=== PATIENT | female | born 1975 | race Caucasian/White ===

== ENCOUNTER 2019-08-25 12:53 | Inpatient (IN) | payer SELFPAY ==
[2019-08-25] MEDS ORDERED: ONDANSETRON 4 MG TAB.RAPDIS PO ONE (13:32)
[2019-08-25] MEDS ORDERED: NORMAL SALINE 1000 ML 1,000 ML IV ONE (13:32)
--- NOTE | 2019-08-25 13:34 | ER Document Report ---
ED Medical Screen (RME) - General Chief Complaint: Fever Stated Complaint: FEVER Time Seen by Provider: 08/25/19 13:30 TRAVEL OUTSIDE OF THE [place] IN LAST 30 DAYS: No - HPI Notes: 08/25/19 13:33 Patient is a 44-year-old female who presents complaining of fever, body ache, nausea that is been ongoing for 6 days despite medicines. Patient states that she normally does have some nasal congestion and cough which she does continue to have and is not sure if this is outside of her normal or not. Denies drug allergies. No chest pain or shortness of breath. No vomiting or diarrhea. I have treated and performed a rapid initial assessment of this patient. A comprehensive ED assessment and evaluation of the patient, analysis of test results and completion of medical decision making process will be conducted by additional ED providers. PHYSICAL EXAMINATION: GENERAL: Well-appearing, well-nourished and in no acute distress. A&Ox4. Answers questions appropriately. Lungs: Grossly CTAB. No retractions. Abdomen: Limited exam in triage, grossly nontender. - Related Data Allergies/Adverse Reactions: No Known Allergies Allergy (Verified 08/25/19 13:25) Past Medical History - Social History Chew tobacco use (# tins/day): No Frequency of alcohol use: None Drug Abuse: None Past Surgical History: Reports: Hx Tubal Ligation - Immunizations Hx Diphtheria, Pertussis, Tetanus Vaccination: Yes
[2019-08-25] MEDS ORDERED: ACETAMINOPHEN 325 MG TABLET PO ONE (14:13)
[2019-08-25 14:15] LABS: HEMATOCRIT 31.5 % (36.0-47.0); HEMOGLOBIN 10.1 g/dL (12.0-15.5); MEAN CORPUSCULAR HEMOGLOBIN 22.4 pg (27.0-33.4); MEAN CORPUSCULAR VOLUME 70 fl (80-97); PLATELET COUNT 324 10^3/uL (150-450); RED BLOOD COUNT 4.51 10^6/uL (3.72-5.28); RED CELL DISTRIBUTION WIDTH 17.7 % (11.5-14.0); WHITE BLOOD COUNT 17.8 10^3/uL (4.0-10.5)
--- NOTE | 2019-08-25 14:16 | ER Document Report ---
ED General - General Chief Complaint: Fever Stated Complaint: FEVER Time Seen by Provider: 08/25/19 14:00 Mode of Arrival: Ambulatory Information source: Patient Notes: Patient presents complaining of fever chills that started 6 days ago. Patient also complains of nausea with diarrhea x1 episode. Patient states she is had a cough but states she has chronic cough due to allergies and smoking. TRAVEL OUTSIDE OF THE [place] IN LAST 30 DAYS: No - HPI Onset: Last week Onset/Duration: Persistent Quality of pain: Achy Pain Level: 1 Associated symptoms: Body/muscle aches, Nonproductive cough - smoker, Fever. denies: Chest pain, Diarrhea, Nausea, Sinus pain/drainage, Shortness of breath, Sore throat Exacerbated by: Denies Relieved by: Denies Similar symptoms previously: Yes Recently seen / treated by doctor: No - Related Data Allergies/Adverse Reactions: No Known Allergies Allergy (Verified 08/25/19 13:25) Past Medical History - General Information source: Patient - Social History Smoking Status: Current Every Day Smoker Chew tobacco use (# tins/day): No Frequency of alcohol use: None Drug Abuse: None Occupation: none Lives with: Family Family History: Reviewed & Not Pertinent Patient has suicidal ideation: No Patient has homicidal ideation: No EENT Medical History: Reports: Other - allergies Past Surgical History: Reports: Hx Tubal Ligation - Immunizations Hx Diphtheria, Pertussis, Tetanus Vaccination: Yes Review of Systems - Review of Systems Constitutional: Chills, Fever. denies: Recent illness EENT: No symptoms reported. denies: Throat pain Cardiovascular: No symptoms reported. denies: Chest pain, Dizziness, Lightheaded Respiratory: Cough - chronic smoker cough. denies: Short of breath, Stridor Gastrointestinal: No symptoms reported. denies: Abdomen distended, Abdominal pain, Diarrhea, Nausea Genitourinary: No symptoms reported. denies: Dysuria, Flank pain Female Genitourinary: No symptoms reported. denies: Vaginal discharge Musculoskeletal: Muscle pain - leg pain to bilat anterior thighs. denies: Back pain Skin: No symptoms reported. denies: Rash Hematologic/Lymphatic: No symptoms reported Neurological/Psychological: No symptoms reported Physical Exam - Vital signs Vitals: Temp Pulse Resp BP Pulse Ox 101.5 F H 146 H 20 107/63 100 08/25/19 13:35 08/25/19 13:35 08/25/19 13:35 08/25/19 13:35 08/25/19 13:35 - General General appearance: Appears well, Alert In distress: None - HEENT Head: Normocephalic, Atraumatic Eyes: Normal Conjunctiva: Normal Ears: Normal External canal: Normal Nasal: Normal Mouth/Lips: Normal Mucous membranes: Normal Neck: Normal, Supple. No: Lymphadenopathy, Meningismus - Respiratory Respiratory status: No respiratory distress Chest status: Nontender Breath sounds: Nonproductive cough. No: Rhonchi, Stridor, Wheezing Chest palpation: Normal - Cardiovascular Rhythm: Tachycardia Heart sounds: S1 appreciated, S2 appreciated Murmur: No - Abdominal Inspection: Normal Distension: No distension Bowel sounds: Normal Tenderness: Nontender Organomegaly: No organomegaly - Back Back: Normal, Nontender. No: CVA tenderness - Extremities General upper extremity: Normal inspection, Normal ROM General lower extremity: Normal inspection, Normal ROM - Neurological Neuro grossly intact: Yes Cognition: Normal Orientation: AAOx4 Tomy Coma Scale Eye Opening: Spontaneous [place] Coma Scale Verbal: Oriented [place] Coma Scale Motor: Obeys Commands Tomy Coma Scale Total: 15 - Psychological Associated symptoms: Normal affect, Normal mood - Skin Skin Temperature: Warm Skin Moisture: Dry Skin Color: Normal Course - Re-evaluation Re-evalutation: 08/25/19 17:25 Patient complains only of generalized body aches. Patient hypotensive at this time. Patient with UTI. Suspect likely sepsis due to UTI at this time. Urine culture has been ordered. Call placed to hospitalist for admission, Dr. Flores does agree to accept patient for admission at this time. 08/25/19 17:29 Patient continues hypotensive, consulted with Dr. Powers who recommends adding an additional liter of IV fluids at this time. Patient is not symptomatic at this time with her hypotension. Dr. Powers does not feel that patient requires pressors at this time. 08/25/19 18:02 Dr. Flores to bedside, manual blood pressure was obtained which was 100 systolic, repeat blood pressure on the monitor was 85/53. Dr Flores declines excepting admission at this time and prefers to have a CT scan performed with IV contrast. She states that she needs a source for patient's infection at this time. Dr Obayomi prefers to have night hospitalist consulted once pt's CT scan is resulted as long as pt's blood pressure is stable, otherwise she advises consulting with the industrial insulator. 08/25/19 18:[address] scan report reviewed that shows findings worrisome for pyelonephritis on the right side. Results called to Dr. flores advises calling Dr. Triplett whenever he comes on at 7. 08/25/19 19:31 Patient's repeat blood pressure presently is 97/65 with a heart rate in the 90s. Patient complains only of muscle tenderness to bilateral anterior thighs. Consulted with Dr. Triplett for admission who agrees to accept patient to medical floor at this time. Does recommend starting IV LR at 250 an hour. - Vital Signs Vital signs: Temp Pulse Resp BP Pulse Ox 98.2 F 118 H 19 94/62 L 98 08/25/19 17:08 08/25/19 14:01 08/25/19 18:49 08/25/19 18:49 08/25/19 18:49 - Laboratory Result Diagrams: 08/25/19 13:43 08/25/19 13:43 Laboratory results interpreted by me: 08/25/19 08/25/19 08/25/19 13:43 13:43 13:43 WBC 17.8 H Hgb 10.1 L Hct 31.5 L MCV 70 L MCH 22.4 L RDW 17.7 H Seg Neuts % (Manual) 84 H Lymphocytes % (Manual) 4 L Abs Neuts (Manual) 15.0 H Abs Monocytes (Manual) 2.0 H VBG pH VBG pCO2 Sodium 134.1 L Carbon Dioxide 21 L Glucose 120 H Lactic Acid 2.6 H Total Protein 6.1 L Albumin 3.2 L Urine Protein Urine Blood Leukocyte Esterase Rfl 08/25/19 08/25/19 15:23 16:09 WBC Hgb Hct MCV MCH RDW Seg Neuts % (Manual) Lymphocytes % (Manual) Abs Neuts (Manual) Abs Monocytes (Manual) VBG pH 7.45 H VBG pCO2 32.3 L Sodium Carbon Dioxide Glucose Lactic Acid Total Protein Albumin Urine Protein 100 H Urine Blood LARGE H Leukocyte Esterase Rfl LARGE H Labs- Entire Visit 08/25/19 08/25/19 08/25/19 13:43 13:43 13:43 WBC 17.8 H RBC 4.51 Hgb 10.1 L Hct 31.5 L MCV 70 L MCH 22.4 L MCHC 32.0 RDW 17.7 H Plt Count 324 Lymph % (Auto) Not Reportable Rains % (Auto) Not Reportable Eos % (Auto) Not Reportable Baso % (Auto) Not Reportable Absolute Neuts (auto) Not Reportable Absolute Lymphs (auto) Not Reportable Absolute Monos (auto) Not Reportable Absolute Eos (auto) Not Reportable Absolute Basos (auto) Not Reportable Total Counted 100 Seg Neutrophils % Not Reportable Seg Neuts % (Manual) 84 H Lymphocytes % (Manual) 4 L Monocytes % (Manual) 11 Eosinophils % (Manual) 1 Basophils % (Manual) 0 Abs Neuts (Manual) 15.0 H Abs Lymphs (Manual) 0.7 Abs Monocytes (Manual) 2.0 H Absolute Eos (Manual) 0.2 Abs Basophils (Manual) 0.0 Large Platelets PRESENT Platelet Comment ADEQUATE Anisocytosis 1+ Microcytosis 2+ Ovalocytes 1+ PT INR VBG pH VBG pCO2 VBG HCO3 VBG Base Excess Sodium 134.1 L Potassium 3.6 Chloride 102 Carbon Dioxide 21 L Anion Gap 11 BUN 12 Creatinine 1.00 Est GFR ( Amer) > 60 Est GFR (MDRD) Non-Af > 60 Glucose 120 H Lactic Acid 2.6 H Calcium 8.5 Total Bilirubin 0.7 Direct Bilirubin 0.1 Neonat Total Bilirubin Not Reportable Neonat Direct Bilirubin Not Reportable Neonat Indirect Bili Not Reportable AST 17 ALT 11 Alkaline Phosphatase 72 Creatine Kinase Total Protein 6.1 L Albumin 3.2 L Urine Color Urine Appearance Urine pH Ur Specific [place] Urine Protein Urine Glucose (UA) Urine Ketones Urine Blood Urine Nitrite (Reflex) Urine Bilirubin Urine Urobilinogen Leukocyte Esterase Rfl Urine RBC (Auto) Urine Bacteria (Auto) Urine WBC (Reflex) Urine WBC Clumps Squamous Epi Cells Auto U Non-Squamous Epis Auto Amorphous Sediment Auto Urine Mucus (Auto) Urine Ascorbic Acid Urine HCG, Qual Influenza A (Rapid) Influenza B (Rapid) Group A Strep Rapid 08/25/19 08/25/19 08/25/19 13:43 13:43 13:43 WBC RBC Hgb Hct MCV MCH MCHC RDW Plt Count Lymph % (Auto) Rains % (Auto) Eos % (Auto) Baso % (Auto) Absolute Neuts (auto) Absolute Lymphs (auto) Absolute Monos (auto) Absolute Eos (auto) Absolute Basos (auto) Total Counted Seg Neutrophils % Seg Neuts % (Manual) Lymphocytes % (Manual) Monocytes % (Manual) Eosinophils % (Manual) Basophils % (Manual) Abs Neuts (Manual) Abs Lymphs (Manual) Abs Monocytes (Manual) Absolute Eos (Manual) Abs Basophils (Manual) Large Platelets Platelet Comment Anisocytosis Microcytosis Ovalocytes PT 15.0 INR 1.17 VBG pH VBG pCO2 VBG HCO3 VBG Base Excess Sodium Potassium Chloride Carbon Dioxide Anion Gap BUN Creatinine Est GFR ( Amer) Est GFR (MDRD) Non-Af Glucose Lactic Acid Calcium Total Bilirubin Direct Bilirubin Neonat Total Bilirubin Neonat Direct Bilirubin Neonat Indirect Bili AST ALT Alkaline Phosphatase Creatine Kinase 34 Total Protein Albumin Urine Color Urine Appearance Urine pH Ur Specific [place] Urine Protein Urine Glucose (UA) Urine Ketones Urine Blood Urine Nitrite (Reflex) Urine Bilirubin Urine Urobilinogen Leukocyte Esterase Rfl Urine RBC (Auto) Urine Bacteria (Auto) Urine WBC (Reflex) Urine WBC Clumps Squamous Epi Cells Auto U Non-Squamous Epis Auto Amorphous Sediment Auto Urine Mucus (Auto) Urine Ascorbic Acid Urine HCG, Qual Influenza A (Rapid) NEGATIVE Influenza B (Rapid) NEGATIVE Group A Strep Rapid 08/25/19 08/25/19 08/25/19 14:57 14:57 15:23 WBC RBC Hgb Hct MCV MCH MCHC RDW Plt Count Lymph % (Auto) Rains % (Auto) Eos % (Auto) Baso % (Auto) Absolute Neuts (auto) Absolute Lymphs (auto) Absolute Monos (auto) Absolute Eos (auto) Absolute Basos (auto) Total Counted Seg Neutrophils % Seg Neuts % (Manual) Lymphocytes % (Manual) Monocytes % (Manual) Eosinophils % (Manual) Basophils % (Manual) Abs Neuts (Manual) Abs Lymphs (Manual) Abs Monocytes (Manual) Absolute Eos (Manual) Abs Basophils (Manual) Large Platelets Platelet Comment Anisocytosis Microcytosis Ovalocytes PT INR VBG pH 7.45 H VBG pCO2 32.3 L VBG HCO3 21.8 VBG Base Excess -1.8 Sodium Potassium Chloride Carbon Dioxide Anion Gap BUN Creatinine Est GFR ( Amer) Est GFR (MDRD) Non-Af Glucose Lactic Acid Calcium Total Bilirubin Direct Bilirubin Neonat Total Bilirubin Neonat Direct Bilirubin Neonat Indirect Bili AST ALT Alkaline Phosphatase Creatine Kinase Total Protein Albumin Urine Color Urine Appearance Urine pH Ur Specific [place] Urine Protein Urine Glucose (UA) Urine Ketones Urine Blood Urine Nitrite (Reflex) Urine Bilirubin Urine Urobilinogen Leukocyte Esterase Rfl Urine RBC (Auto) Urine Bacteria (Auto) Urine WBC (Reflex) Urine WBC Clumps Squamous Epi Cells Auto U Non-Squamous Epis Auto Amorphous Sediment Auto Urine Mucus (Auto) Urine Ascorbic Acid Urine HCG, Qual Influenza A (Rapid) Cancelled Influenza B (Rapid) Cancelled Group A Strep Rapid NEGATIVE 08/25/19 16:09 WBC RBC Hgb Hct MCV MCH MCHC RDW Plt Count Lymph % (Auto) Rains % (Auto) Eos % (Auto) Baso % (Auto) Absolute Neuts (auto) Absolute Lymphs (auto) Absolute Monos (auto) Absolute Eos (auto) Absolute Basos (auto) Total Counted Seg Neutrophils % Seg Neuts % (Manual) Lymphocytes % (Manual) Monocytes % (Manual) Eosinophils % (Manual) Basophils % (Manual) Abs Neuts (Manual) Abs Lymphs (Manual) Abs Monocytes (Manual) Absolute Eos (Manual) Abs Basophils (Manual) Large Platelets Platelet Comment Anisocytosis Microcytosis Ovalocytes PT INR VBG pH VBG pCO2 VBG HCO3 VBG Base Excess Sodium Potassium Chloride Carbon Dioxide Anion Gap BUN Creatinine Est GFR ( Amer) Est GFR (MDRD) Non-Af Glucose Lactic Acid Calcium Total Bilirubin Direct Bilirubin Neonat Total Bilirubin Neonat Direct Bilirubin Neonat Indirect Bili AST ALT Alkaline Phosphatase Creatine Kinase Total Protein Albumin Urine Color YELLOW Urine Appearance CLOUDY Urine pH 5.0 Ur Specific [place] 1.008 Urine Protein 100 H Urine Glucose (UA) NEGATIVE Urine Ketones NEGATIVE Urine Blood LARGE H Urine Nitrite (Reflex) NEGATIVE Urine Bilirubin NEGATIVE Urine Urobilinogen NEGATIVE Leukocyte Esterase Rfl LARGE H Urine RBC (Auto) 24 Urine Bacteria (Auto) 3+ Urine WBC (Reflex) 172 Urine WBC Clumps MANY Squamous Epi Cells Auto 11 U Non-Squamous Epis Auto 1 Amorphous Sediment Auto TRACE Urine Mucus (Auto) RARE Urine Ascorbic Acid NEGATIVE Urine HCG, Qual NEGATIVE Influenza A (Rapid) Influenza B (Rapid) Group A Strep Rapid - Diagnostic Test Radiology reviewed: Reports reviewed Discharge - Discharge Clinical Impression: Pyelonephritis Fever Qualifiers: Fever type: unspecified Qualified Code(s): R50.9 - Fever, unspecified Leukocytosis Qualifiers: Leukocytosis type: unspecified Qualified Code(s): D72.829 - Elevated white blood cell count, unspecified Condition: Fair Disposition: ADMITTED INPATIENT Admitting Provider: Ioana (Hospitalist) Unit Admitted: Medical Floor
[2019-08-25 14:26] LABS: ABSOLUTE LYMPHOCYTES# (MANUAL) 0.7 10^3/uL (0.5-4.7); BASOPHILS % (MANUAL) 0 % (0-2); EOSINOPHILS % (MANUAL) 1 % (0-6); LYMPHOCYTES % (MANUAL) 4 % (13-45); MONOCYTES % (MANUAL) 11 % (3-13); SEGMENTED NEUTROPHILS % (MAN) 84 % (42-78); TOTAL CELLS COUNTED 100
[2019-08-25 14:27] LABS: ANISOCYTOSIS 1+; OVALOCYTES 1+; PLATELET COMMENT ADEQUATE; PLATELET LARGE PRESENT
--- NOTE | 2019-08-25 14:33 | RADIOLOGY REPORT (SQ) ---
EXAM DESCRIPTION: CHEST 2 VIEWS COMPLETED DATE/TIME: 08/25/2019 1:53 pm REASON FOR STUDY: fever, cough COMPARISON: None. EXAM PARAMETERS: NUMBER OF VIEWS: two views TECHNIQUE: Digital Frontal and Lateral radiographic views of the chest acquired. RADIATION DOSE: NA LIMITATIONS: none FINDINGS: LUNGS AND PLEURA: No opacities, masses or pneumothorax. No pleural effusion. MEDIASTINUM AND HILAR STRUCTURES: No masses or contour abnormalities. HEART AND VASCULAR STRUCTURES: Heart normal size. No evidence for failure. BONES: No acute findings. HARDWARE: None in the chest. OTHER: No other significant finding. IMPRESSION: NO ACUTE RADIOGRAPHIC FINDING IN THE CHEST. TECHNICAL DOCUMENTATION: JOB ID: [id number] 2010 [employer]- All Rights Reserved Reading location - IP/workstation name: [email or web address]
[2019-08-25 14:35] LABS: ALBUMIN 3.2 g/dL (3.5-5.0); ALKALINE PHOSPHATASE 72 U/L (38-126); ANION GAP 11 (5-19); ASPARTATE AMINO TRANSFERASE 17 U/L (14-36); BILIRUBIN,DIRECT 0.1 mg/dL (0.0-0.4); BILIRUBIN,TOTAL 0.7 mg/dL (0.2-1.3); BLOOD UREA NITROGEN 12 mg/dL (7-20); CALCIUM 8.5 mg/dL (8.4-10.2); CARBON DIOXIDE 21 mmol/L (22-30); CHLORIDE 102 mmol/L (98-107); GLUCOSE 120 mg/dL (75-110); POTASSIUM 3.6 mmol/L (3.6-5.0); TOTAL PROTEIN 6.1 g/dL (6.3-8.2)
[2019-08-25] MEDS ORDERED: RINGERS SOLUTION,LACTATED 1,000 ML IV ONE ×3 (14:39→19:30)
[2019-08-25 14:57] LABS: INTERNATIONAL RATION (INR) 1.17
[2019-08-25 15:26] LABS: A TYPE INFLUENZA AG NEGATIVE (NEGATIVE); B INFLUENZA AG NEGATIVE (NEGATIVE)
[2019-08-25 15:37] LABS: VENOUS BLOOD BASE EXCESS -1.8 mmol/L; VENOUS BLOOD HCO3 21.8 mmol/L (20-32); VENOUS BLOOD PCO2 32.3 mmHg (35-63); VENOUS BLOOD PH 7.45 (7.30-7.42)
[2019-08-25] MEDS ORDERED: CEFTRIAXONE 1 GM/D5W RTU 1 GM/50 ML RTUPB IV ONE (15:46)
[2019-08-25] MEDS ORDERED: NORMAL SALINE 500 ML IV ONE (15:47)
[2019-08-25 16:46] LABS: AMORPHOUS SEDIMENT,URINE TRACE /HPF; APPEARANCE,URINE CLOUDY; BILIRUBIN,URINE NEGATIVE (NEGATIVE); COLOR,URINE YELLOW; GLUCOSE, URINE NEGATIVE (NEGATIVE); KETONES,URINE NEGATIVE (NEGATIVE); PROTEIN,URINE 100 mg/dL (NEGATIVE); URINE SPECIFIC GRAVITY 1.008; UROBILINOGEN,URINE NEGATIVE mg/dL (<2.0)
--- NOTE | 2019-08-25 18:49 | RADIOLOGY REPORT (SQ) ---
EXAM DESCRIPTION: CT ABD/PELVIS WITH IV ONLY COMPLETED DATE/TIME: 08/25/2019 6:29 pm REASON FOR STUDY: uti, hypotension COMPARISON: None. TECHNIQUE: CT scan of the abdomen and pelvis performed using helical scanning technique with dynamic intravenous contrast injection. No oral contrast. Images reviewed with lung, soft tissue, and bone windows. Reconstructed coronal and sagittal MPR images reviewed. Delayed images for evaluation of the urinary system also acquired. All images stored on PACS. All CT scanners at this facility use dose modulation, iterative reconstruction, and/or weight based d osing when appropriate to reduce radiation dose to as low as reasonably achievable (ALARA). [facility]: Dose Right [facility]: CareDose [facility]: Dose Right [facility]: Teradose 4D [facility]: [employer] CONTRAST TYPE AND DOSE: contrast/concentration: Isovue 350.00 mg/ml; Total Contrast Delivered: 94.0 ml; Total Saline Delivered: 71.0 ml RENAL FUNCTION: BUN 12 creatinine 1 RADIATION DOSE: CT Rad equipment meets quality standard of care and radiation dose reduction techniq ues were employed. CTDIvol: 13.2 - 18.0 mGy. DLP: 1607 mGy-cm.. LIMITATIONS: None. FINDINGS: LOWER CHEST: No significant findings. No nodules or infiltrates. LIVER: Normal in size and appearance. No masses. SPLEEN: Splenomegaly. PANCREAS: No masses. No significant calcifications. No adjacent inflammation or peripancreatic fluid collections. Pancreatic duct not dilated. GALLBLADDER: No identified stones by CT criteria. No inflammatory changes to suggest cholecystitis. ADRENAL GLANDS: No significant masses or asymmetry. RIGHT KIDNEY AND URETER: The right kidney shows heterogeneous enhancement with several areas that enh ance poorly. No significant calcifications. No hydronephrosis or hydroureter. LEFT KIDNEY AND URETER: No solid masses. No significant calcifications. No hydronephrosis or hydr oureter. AORTA AND VESSELS: No aneurysm. No dissection. Renal arteries, SMA, celiac without stenosis. RETROPERITONEUM: No retroperitoneal adenopathy, hemorrhage or masses. BOWEL AND PERITONEAL CAVITY: No masses or inflammatory changes. No free fluid or peritoneal masses. APPENDIX: Normal. PELVIS: No mass. No free fluid. Normal bladder. ABDOMINAL WALL: No masses. No hernias. BONES: No significant or acute findings. OTHER: No other significant finding. IMPRESSION: 1. Possible right pyelonephritis. Correlate clinically. No ureteral stone or obstruct ion. 2. Splenomegaly. TECHNICAL DOCUMENTATION: JOB ID: [id number] Quality ID # [id number]: Final reports with documentation of one or more dose reduction techniques (e.g., Au tomated exposure control, adjustment of the mA and/or kV according to patient size, use of iterative reconstruction technique) 2010 [employer]- All Rights Reserved Reading location - IP/workstation name: [email or web address]
[2019-08-25] MEDS ORDERED: LEVALBUTEROL HCL NEB 0.63 MG/3 ML AMPUL NEB PRN (20:10)
[2019-08-25] MEDS ORDERED: PROMETHAZINE HCL INJ 25 MG/1 ML VIAL IV PRN (20:10)
[2019-08-25] MEDS ORDERED: MAGNESIUM HYDROXIDE SUSP 30 ML UDCUP PO PRN (20:10)
[2019-08-25] MEDS ORDERED: MAG HYDROX/AL HYDROX/SIMETH SUSP 30 ML UDCUP PO PRN (20:10)
[2019-08-25] MEDS ORDERED: NICOTINE 21 MG/24 HR PATCH.TD24 TD PRN (20:14)
[2019-08-25] MEDS ORDERED: GUAIFENESIN SYRP 200 MG/10 ML UDC PO PRN (20:14)
[2019-08-25] MEDS ORDERED: MORPHINE SULFATE 10 MG/ML INJ IV PRN ×3 (20:14)
[2019-08-25 20:41] LABS: ABSOLUTE RETICS # 0.035 10^6/uL (0.028-0.122); RETICULOCYTE COUNT (AUTO) 0.82 % (0.66-2.85)
[2019-08-25 20:51] LABS: IRON(TIBC) 10.2 ug/dL (37-170)
--- NOTE | 2019-08-25 21:19 | EKG REPORT ---
SEVERITY:- NORMAL ECG - SINUS RHYTHM : Confirmed by: Kellie Felix 25-Aug-2019 21:18:11
[2019-08-25 21:56] LABS: FOLATE 4.67 ng/mL (>2.76)
[2019-08-25] MEDS: ACETAMINOPHEN 325 MG TABLET PO PRN (22:00)
[2019-08-25] MEDS ORDERED: MEROPENEM 1 GM VIAL IV SCH (22:00)
[2019-08-25] MEDS: FAMOTIDINE 20 MG TABLET PO SCH (22:01)
[2019-08-25] MEDS: HEPARIN SOD (PORCINE) 5,000 UNIT/ML 1 ML VIAL SUBCUT SCH (22:01)
--- NOTE | 2019-08-25 22:38 | PDOC H&P ---
History of Present Illness Admission Date/PCP: 08/25/19 19:36 No local PCP Patient complains of: Fever History of Present Illness: LILIA GALO is a 44 year old female who presents the emergency room with a one-week history of fever. Patient admits to constantly present undulant subjective fever of moderate severity over the last 6 to 7 days. The fever has been accompanied by intermittent episodes of chills and has been associated with generalized malaise and ague. She has not identified any additional associated or accompanying signs and symptoms. She denies prior similar episodes. She has not identified any aggravating or ameliorating factors for her fever. In the emergency room she was found to have tachycardia, hypotension, an elevated white blood count with an elevated lactic acid level and pyuria. A CT scan of the abdomen and pelvis confirmed presence of right pyelonephritis. IV antibiotic therapy was initiated in the ER. Patient was subsequently admitted to the hospital for further evaluation and treatment. Past Medical History Cardiac Medical History: Denies: Coronary Artery Disease, DVT, Hyperlipidema, Hypertension, Pulmonary Embolism Pulmonary Medical History: Reports: Bronchitis, Other - Chronic cough attributed to allergies and smoking Denies: Asthma, Chronic Obstructive Pulmonary Disease (COPD), Respiratory Failure EENT Medical History: Denies: Cataracts, Ears - Hearing aids Neurological Medical History: Denies: Hemorrhagic CVA, Ischemic CVA, Seizures Endocrine Medical History: Reports: Obesity Denies: Diabetes Mellitus Type 1, Diabetes Mellitus Type 2, Hyperthyroidism, Hypothyroidism Renal/ Medical History: Denies: Chronic Kidney Disease, Nephrolithiasis Malignancy Medical History: Reports: None GI Medical History: Denies: Cirrhosis, Crohn's Disease, Gastroesophageal Reflux Disease, Hepatitis, Peptic Ulcer Disease, Ulcerative Colitis Musculoskeltal Medical History: Denies: Arthritis, Gout Skin Medical History: Denies: Eczema, Psoriasis Psychiatric Medical History: Reports: Tobacco Dependency Denies: Alcohol Dependency, Substance Abuse Traumatic Medical History: Reports: None Hematology: Denies: Anemia, Bleeding Tendencies Infectious Medical History: Reports: None Past Surgical History Past Surgical History: Reports: Tubal Ligation Social History Information Source: Patient Lives with: Family Smoking Status: Current Every Day Smoker Cigarettes Packs Per Day: 1 Electronic Cigarette use?: No Last Time Smoked: 08/25/2019 Frequency of Alcohol Use: None Hx Recreational Drug Use: Yes - Clean and sober since March 2019 Drugs: None Hx Prescription Drug Abuse: No - Advance Directive Resuscitation Status: Full Code Surrogate healthcare decision maker:: Rojas Galo Family History Family History: CAD, DM, Hypertension, Malignancy Parental Family History Reviewed: Yes Children Family History Reviewed: No Sibling(s) Family History Reviewed.: Yes Medication/Allergy Home Medications: No Home Medications 08/25/19 Allergies/Adverse Reactions: No Known Allergies Allergy (Verified 08/25/19 13:25) Review of Systems Constitutional: PRESENT: as per HPI, chills, fever(s) Eyes: ABSENT: visual disturbances, other - Eye pain Ears: ABSENT: hearing changes, other - Ear pain Nose, Mouth, and Throat: ABSENT: headache(s), mouth pain, sore throat Cardiovascular: ABSENT: chest pain, dyspnea on exertion, edema, orthropnea, palpitations Respiratory: PRESENT: cough - Chronic cough. ABSENT: dyspnea Gastrointestinal: PRESENT: diarrhea - One episode of diarrhea earlier today, nausea - Mild nausea earlier today. ABSENT: abdominal pain, constipation, vomiting Genitourinary: PRESENT: other - Currently menstruating. ABSENT: dysuria, hematuria Integumentary: ABSENT: pruritus, rash Neurological: ABSENT: confusion, convulsions, focal weakness, memory loss, syncope Psychiatric: ABSENT: anxiety, depression Endocrine: ABSENT: cold intolerance, heat intolerance, polydipsia, polyphagia, polyuria Allergic/Immunologic: PRESENT: seasonal rhinorrhea Physical Exam Vital Signs: Temp Pulse Resp BP Pulse Ox 98.2 F 118 H 19 94/62 L 98 08/25/19 17:08 08/25/19 14:01 08/25/19 18:49 08/25/19 18:49 08/25/19 18:49 Intake & Output 08/23/19 08/24/19 08/25/19 23:59 23:59 23:59 Intake Total 2500 Balance 2500 Weight 80.8 kg General appearance: PRESENT: no acute distress, cooperative Head exam: PRESENT: atraumatic, normocephalic Eye exam: PRESENT: conjunctiva pink. ABSENT: conjunctival injection, scleral icterus Ear exam: PRESENT: normal external ear exam. ABSENT: bleeding, drainage Mouth exam: PRESENT: dry mucosa, neck supple Neck exam: ABSENT: thyromegaly, tracheal deviation Respiratory exam: PRESENT: clear to auscultation donovan, symmetrical, unlabored Cardiovascular exam: PRESENT: RRR. ABSENT: clicks, gallop, rubs Pulses: PRESENT: normal radial pulses, normal dorsalis pedis pul Vascular exam: PRESENT: normal capillary refill. ABSENT: pallor GI/Abdominal exam: PRESENT: normal bowel sounds, soft, tenderness - Moderate right flank tenderness on palpation and percussion Rectal exam: PRESENT: deferred Extremities exam: ABSENT: joint swelling, pedal edema Musculoskeletal exam: PRESENT: ambulatory, full ROM, normal inspection Neurological exam: PRESENT: alert, oriented to person, oriented to place, oriented to time, oriented to situation, CN II-XII grossly intact. ABSENT: motor sensory deficit Psychiatric exam: PRESENT: appropriate affect, normal mood Skin exam: PRESENT: dry, intact, warm. ABSENT: jaundice, rash, urticaria Results Laboratory Results: 08/25/19 13:43 08/25/19 13:43 08/25/19 08/25/19 08/25/19 13:43 13:43 13:43 WBC 17.8 H RBC 4.51 Hgb 10.1 L Hct 31.5 L MCV 70 L MCH 22.4 L MCHC 32.0 RDW 17.7 H Plt Count 324 Seg Neutrophils % Not Reportable VBG pH VBG pCO2 VBG HCO3 VBG Base Excess Sodium 134.1 L Potassium 3.6 Chloride 102 Carbon Dioxide 21 L Anion Gap 11 BUN 12 Creatinine 1.00 Est GFR ( Amer) > 60 Glucose 120 H Lactic Acid 2.6 H Calcium 8.5 Total Bilirubin 0.7 AST 17 Alkaline Phosphatase 72 Total Protein 6.1 L Albumin 3.2 L Urine Color Urine Appearance Urine pH Ur Specific [place] Urine Protein Urine Glucose (UA) Urine Ketones Urine Blood Urine RBC (Auto) 08/25/19 08/25/19 08/25/19 15:23 16:09 17:00 WBC RBC Hgb Hct MCV MCH MCHC RDW Plt Count Seg Neutrophils % VBG pH 7.45 H VBG pCO2 32.3 L VBG HCO3 21.8 VBG Base Excess -1.8 Sodium Potassium Chloride Carbon Dioxide Anion Gap BUN Creatinine Est GFR ( Amer) Glucose Lactic Acid 1.8 Calcium Total Bilirubin AST Alkaline Phosphatase Total Protein Albumin Urine Color YELLOW Urine Appearance CLOUDY Urine pH 5.0 Ur Specific [place] 1.008 Urine Protein 100 H Urine Glucose (UA) NEGATIVE Urine Ketones NEGATIVE Urine Blood LARGE H Urine RBC (Auto) 24 08/25/19 13:43 Creatine Kinase 34 Impressions: Chest X-Ray 08/25/19 13:32 IMPRESSION: NO ACUTE RADIOGRAPHIC FINDING IN THE CHEST. Abdomen/Pelvis CT 08/25/19 18:01 IMPRESSION: 1. Possible right pyelonephritis. Correlate clinically. No ureteral stone or obstruction. 2. Splenomegaly. Assessment and Plan - Diagnosis (1) Acute pyelonephritis without medullary necrosis Is this a current diagnosis for this admission?: Yes (2) SIRS (systemic inflammatory response syndrome) Is this a current diagnosis for this admission?: Yes (3) Hypotension Qualifiers: Hypotension type: unspecified hypotension type Qualified Code(s): I95.9 - Hypotension, unspecified Is this a current diagnosis for this admission?: Yes (4) Fever Qualifiers: Fever type: due to other condition Qualified Code(s): R50.81 - Fever presenting with conditions classified elsewhere Is this a current diagnosis for this admission?: Yes (5) Leukocytosis Qualifiers: Leukocytosis type: unspecified Qualified Code(s): D72.829 - Elevated white blood cell count, unspecified Is this a current diagnosis for this admission?: Yes (6) Hypochromic microcytic anemia Is this a current diagnosis for this admission?: Yes (7) Tobacco use disorder, continuous Is this a current diagnosis for this admission?: Yes - Plan Summary Summary: Patient is admitted to the medical floor where she will receive routine supportive and symptomatic cares. She will be treated with IV antibiotics initially utilizing meropenem 1 g IV every 8 hours. She will be treated with high-volume IV fluids. Tylenol and/or ibuprofen will be used to treat her fever. CBCs, metabolic profiles and magnesium levels will be obtained as appropriate. Blood and urine cultures are pending. An anemia profile will be obtained. Patient will use morphine sulfate 2 to 4 mg IV every 2 hours as needed for pain. Serial lactic acids will be obtained. Smoking cessation is advised and counseled briefly at the bedside. - Time Time Spent with patient: 15-24 minutes Smoking Cessation Education: 3 to 10 minutes Medications reviewed and adjusted accordingly: No - No home meds Anticipated discharge: Home - Inpatient Certification Based on my medical assessment, after consideration of the patient's comorbidit ies, presenting symptoms, or acuity I expect that the services needed warrant INPATIENT care.: Yes I certify that my determination is in accordance with my understanding of [place]'s requirements for reasonable and necessary INPATIENT services [42 CFR 412.3e].: Yes Medical Necessity: Need Close Monitoring Due to Risk of Patient Decompensation, Need For IV Fluids, Need for IV Antibiotics, Risk of Complication if Not Cared For in Hospital
[2019-08-25] MEDS ORDERED: INFLUENZA QUAD (6MOS+) 2019-20 VAC 0.5 ML SYR IM ONE (22:39)
[2019-08-25] MEDS: MEROPENEM 1 GM in NORMAL SALINE 50 ML IV SCH (22:40)
[2019-08-25] MEDS: IBUPROFEN 800 MG TABLET PO PRN (23:53)
[2019-08-26] MEDS: RINGERS SOLUTION,LACTATED 1,000 ML IV PRN ×5 (02:53→21:12)
[2019-08-26 05:13] LABS: HEMATOCRIT 25.6 % (36.0-47.0); HEMOGLOBIN 8.2 g/dL (12.0-15.5); MEAN CORPUSCULAR HEMOGLOBIN 22.6 pg (27.0-33.4); MEAN CORPUSCULAR HGB CONC 32.2 g/dL (32.0-36.0); MEAN CORPUSCULAR VOLUME 70 fl (80-97); PLATELET COUNT 261 10^3/uL (150-450); RED BLOOD COUNT 3.64 10^6/uL (3.72-5.28); RED CELL DISTRIBUTION WIDTH 18.2 % (11.5-14.0); WHITE BLOOD COUNT 12.3 10^3/uL (4.0-10.5)
[2019-08-26] MEDS: MEROPENEM 1 GM in NORMAL SALINE 50 ML IV SCH ×3 (05:15→21:14)
[2019-08-26] MEDS: HEPARIN SOD (PORCINE) 5,000 UNIT/ML 1 ML VIAL SUBCUT SCH ×3 (05:16→21:18)
[2019-08-26 05:47] LABS: ANION GAP 6 (5-19); BLOOD UREA NITROGEN 12 mg/dL (7-20); CALCIUM 7.9 mg/dL (8.4-10.2); CARBON DIOXIDE 23 mmol/L (22-30); CHLORIDE 110 mmol/L (98-107); GLUCOSE 84 mg/dL (75-110); POTASSIUM 3.4 mmol/L (3.6-5.0)
[2019-08-26] MEDS: ACETAMINOPHEN 325 MG TABLET PO PRN ×3 (05:51→20:01)
[2019-08-26] MEDS: DOCUSATE SODIUM 100 MG CAPSULE PO SCH ×2 (09:01→17:28)
[2019-08-26] MEDS: FAMOTIDINE 20 MG TABLET PO SCH ×2 (09:01→21:18)
[2019-08-26] MEDS: IBUPROFEN 800 MG TABLET PO PRN ×2 (09:02→17:13)
--- NOTE | 2019-08-26 12:40 | PDOC PROGRESS REPORT ---
Subjective Progress Note for:: 08/26/19 Subjective:: Patient admitted yesterday with sepsis. She was hypotensive. Subsequent CAT scan did reveal pyelonephritis. Patient feels better today. She still is hypotensive, asymptomatic Reason For Visit: FEVER,PYELONEPHRITIS,SIRS,LEUKOCYTOSIS,FEVER, Physical Exam Vital Signs: Temp Pulse Resp BP Pulse Ox 99.3 F 97 16 92/58 L 100 08/26/19 10:35 08/26/19 10:35 08/26/19 10:35 08/26/19 10:35 08/26/19 10:35 Intake & Output 08/25/19 08/26/19 08/27/19 06:59 06:59 06:59 Intake Total 6180 1000 Balance 6180 1000 Weight 81.2 kg General appearance: PRESENT: no acute distress Head exam: PRESENT: atraumatic, normocephalic Eye exam: PRESENT: conjunctiva pink, EOMI, PERRLA. ABSENT: scleral icterus Ear exam: PRESENT: normal external ear exam Mouth exam: PRESENT: moist, tongue midline Neck exam: ABSENT: carotid bruit, JVD, lymphadenopathy, thyromegaly Respiratory exam: PRESENT: clear to auscultation donovan. ABSENT: rales, rhonchi, wheezes Cardiovascular exam: PRESENT: RRR. ABSENT: diastolic murmur, rubs, systolic murmur Pulses: PRESENT: normal dorsalis pedis pul Vascular exam: PRESENT: normal capillary refill GI/Abdominal exam: PRESENT: normal bowel sounds, soft. ABSENT: distended, guarding, mass, organolmegaly, rebound, tenderness Rectal exam: PRESENT: deferred Gentrourinary exam: PRESENT: other - Right costovertebral angle tenderness, minimal Extremities exam: PRESENT: full ROM. ABSENT: calf tenderness, clubbing, pedal edema Neurological exam: PRESENT: alert, awake, oriented to person, oriented to place, oriented to time, oriented to situation, CN II-XII grossly intact. ABSENT: motor sensory deficit Psychiatric exam: PRESENT: appropriate affect, normal mood. ABSENT: homicidal ideation, suicidal ideation Skin exam: PRESENT: dry, intact, warm. ABSENT: cyanosis, rash Results Laboratory Results: 08/26/19 04:46 08/26/19 04:46 08/25/19 08/25/19 08/25/19 13:43 13:43 13:43 WBC 17.8 H RBC 4.51 Hgb 10.1 L Hct 31.5 L MCV 70 L MCH 22.4 L MCHC 32.0 RDW 17.7 H Plt Count 324 Seg Neutrophils % Not Reportable Retic Count (auto) VBG pH VBG pCO2 VBG HCO3 VBG Base Excess Sodium 134.1 L Potassium 3.6 Chloride 102 Carbon Dioxide 21 L Anion Gap 11 BUN 12 Creatinine 1.00 Est GFR ( Amer) > 60 Glucose 120 H Lactic Acid 2.6 H Calcium 8.5 Magnesium Iron TIBC % Saturation Ferritin Total Bilirubin 0.7 AST 17 Alkaline Phosphatase 72 Total Protein 6.1 L Albumin 3.2 L Vitamin B12 Folate TSH Urine Color Urine Appearance Urine pH Ur Specific [place] Urine Protein Urine Glucose (UA) Urine Ketones Urine Blood Urine RBC (Auto) 08/25/19 08/25/19 08/25/19 13:43 13:43 13:43 WBC RBC Hgb Hct MCV MCH MCHC RDW Plt Count Seg Neutrophils % Retic Count (auto) 0.82 VBG pH VBG pCO2 VBG HCO3 VBG Base Excess Sodium Potassium Chloride Carbon Dioxide Anion Gap BUN Creatinine Est GFR ( Amer) Glucose Lactic Acid Calcium Magnesium Iron 10.2 L TIBC 310 % Saturation 3 Ferritin 65.30 Total Bilirubin AST Alkaline Phosphatase Total Protein Albumin Vitamin B12 207.0 L Folate 4.67 TSH 1.60 Urine Color Urine Appearance Urine pH Ur Specific [place] Urine Protein Urine Glucose (UA) Urine Ketones Urine Blood Urine RBC (Auto) 08/25/19 08/25/19 08/25/19 15:23 16:09 17:00 WBC RBC Hgb Hct MCV MCH MCHC RDW Plt Count Seg Neutrophils % Retic Count (auto) VBG pH 7.45 H VBG pCO2 32.3 L VBG HCO3 21.8 VBG Base Excess -1.8 Sodium Potassium Chloride Carbon Dioxide Anion Gap BUN Creatinine Est GFR ( Amer) Glucose Lactic Acid 1.8 Calcium Magnesium Iron TIBC % Saturation Ferritin Total Bilirubin AST Alkaline Phosphatase Total Protein Albumin Vitamin B12 Folate TSH Urine Color YELLOW Urine Appearance CLOUDY Urine pH 5.0 Ur Specific [place] 1.008 Urine Protein 100 H Urine Glucose (UA) NEGATIVE Urine Ketones NEGATIVE Urine Blood LARGE H Urine RBC (Auto) 24 08/25/19 08/26/19 08/26/19 20:15 00:31 04:46 WBC RBC Hgb Hct MCV MCH MCHC RDW Plt Count Seg Neutrophils % Retic Count (auto) VBG pH VBG pCO2 VBG HCO3 VBG Base Excess Sodium Potassium Chloride Carbon Dioxide Anion Gap BUN Creatinine Est GFR ( Amer) Glucose Lactic Acid 2.2 H 0.9 0.7 Calcium Magnesium Iron TIBC % Saturation Ferritin Total Bilirubin AST Alkaline Phosphatase Total Protein Albumin Vitamin B12 Folate TSH Urine Color Urine Appearance Urine pH Ur Specific [place] Urine Protein Urine Glucose (UA) Urine Ketones Urine Blood Urine RBC (Auto) 08/26/19 08/26/19 04:46 04:46 WBC 12.3 H RBC 3.64 L Hgb 8.2 L Hct 25.6 L MCV 70 L MCH 22.6 L MCHC 32.2 RDW 18.2 H Plt Count 261 Seg Neutrophils % Retic Count (auto) VBG pH VBG pCO2 VBG HCO3 VBG Base Excess Sodium 139.3 Potassium 3.4 L Chloride 110 H Carbon Dioxide 23 Anion Gap 6 BUN 12 Creatinine 0.82 Est GFR ( Amer) > 60 Glucose 84 Lactic Acid Calcium 7.9 L Magnesium 1.7 Iron TIBC % Saturation Ferritin Total Bilirubin AST Alkaline Phosphatase Total Protein Albumin Vitamin B12 Folate TSH Urine Color Urine Appearance Urine pH Ur Specific [place] Urine Protein Urine Glucose (UA) Urine Ketones Urine Blood Urine RBC (Auto) 08/25/19 13:43 Creatine Kinase 34 Impressions: Chest X-Ray 08/25/19 13:32 IMPRESSION: NO ACUTE RADIOGRAPHIC FINDING IN THE CHEST. Abdomen/Pelvis CT 08/25/19 18:01 IMPRESSION: 1. Possible right pyelonephritis. Correlate clinically. No ureteral stone or obstruction. 2. Splenomegaly. Assessment and Plan - Diagnosis (1) Sepsis Is this a current diagnosis for this admission?: Yes Plan: Secondary to pyelonephritis. She is yielding gram-negative bacteria in her urine. Patient is on empiric meropenem. She is clinically improved and will continue pending culture results Patient was hypotensive, tachycardic and febrile with a leukocytosis and an acute pyelonephritis. She has received and continues to receive isotonic fluid. We will continue with this for now. (2) Acute pyelonephritis without medullary necrosis Is this a current diagnosis for this admission?: Yes Plan: Continue with current empiric antibiotics (3) Tobacco use disorder, continuous Is this a current diagnosis for this admission?: Yes (4) Iron deficiency anemia Is this a current diagnosis for this admission?: Yes Plan: Likely secondary to chronic blood loss. Patient's iron stores 10. She will need outpatient follow-up due to severe iron deficiency. Was given IV iron as well as start iron oral iron subsequently. Will check occult blood in the stool specimen. (5) Hypokalemia Is this a current diagnosis for this admission?: Yes Plan: Will replace - Plan Summary Summary: Patient is admitted to the medical floor where she will receive routine sup portive and symptomatic cares. She will be treated with IV antibiotics initially utilizing meropenem 1 g IV every 8 hours. She will be treated with high-volume IV fluids. Tylenol and/or ibuprofen will be used to treat her fever. CBCs, metabolic profiles and magnesium levels will be obtained as a ppropriate. Blood and urine cultures are pending. An anemia profile will be obtained. Patient will use morphine sulfate 2 to 4 mg IV every 2 hours as needed for pain. Serial lactic acids will be obtained. Smoking cessation is advised and counseled briefly at the bedside. - Time Time Spent with patient: 15-24 minutes Medications reviewed and adjusted accordingly: Yes Anticipated discharge: Home Within: within 72 hours
[2019-08-26] MEDS ORDERED: IRON SUCROSE COMPLEX INJ/PF 100 MG/5 ML SDV IV ONE ×3 (13:00→17:30)
[2019-08-26] MEDS ORDERED: POTASSIUM CHLORIDE 10 MEQ TABLET.ER PO ONE (13:00)
[2019-08-26] MEDS: TEMAZEPAM 15 MG CAPSULE PO PRN (21:18)
[2019-08-27 04:50] LABS: MEAN CORPUSCULAR HGB CONC 32.9 g/dL (32.0-36.0); MEAN CORPUSCULAR VOLUME 70 fl (80-97); PLATELET COUNT 261 10^3/uL (150-450); RED BLOOD COUNT 3.44 10^6/uL (3.72-5.28); RED CELL DISTRIBUTION WIDTH 18.4 % (11.5-14.0); WHITE BLOOD COUNT 7.9 10^3/uL (4.0-10.5)
[2019-08-27 04:57] LABS: HEMOGLOBIN 7.9 g/dL (12.0-15.5)
[2019-08-27 05:12] LABS: ANION GAP 5 (5-19); BLOOD UREA NITROGEN 12 mg/dL (7-20); CALCIUM 8.4 mg/dL (8.4-10.2); CARBON DIOXIDE 25 mmol/L (22-30); CHLORIDE 110 mmol/L (98-107); GLUCOSE 87 mg/dL (75-110); POTASSIUM 3.9 mmol/L (3.6-5.0)
[2019-08-27] MEDS: MEROPENEM 1 GM in NORMAL SALINE 50 ML IV SCH ×2 (06:05→14:17)
[2019-08-27] MEDS: HEPARIN SOD (PORCINE) 5,000 UNIT/ML 1 ML VIAL SUBCUT SCH ×3 (06:05→21:21)
[2019-08-27] MEDS: ACETAMINOPHEN 325 MG TABLET PO PRN (06:16)
[2019-08-27] MEDS: FAMOTIDINE 20 MG TABLET PO SCH ×2 (09:51→21:22)
[2019-08-27] MEDS: DOCUSATE SODIUM 100 MG CAPSULE PO SCH ×2 (09:51→17:21)
[2019-08-27] MEDS: IBUPROFEN 800 MG TABLET PO PRN ×2 (09:51→17:20)
--- NOTE | 2019-08-27 16:19 | PDOC PROGRESS REPORT ---
Subjective Progress Note for:: 08/27/19 Subjective:: Patient admitted with sepsis. She was hypotensive. Subsequent CAT scan did reveal pyelonephritis. Patient feels much better today. Reason For Visit: FEVER,PYELONEPHRITIS,SIRS,LEUKOCYTOSIS,FEVER, Physical Exam Vital Signs: Temp Pulse Resp BP Pulse Ox 98.6 F 84 16 114/71 98 08/27/19 12:00 08/27/19 12:00 08/27/19 12:00 08/27/19 12:00 08/27/19 12:00 Intake & Output 08/26/19 08/27/19 08/28/19 06:59 06:59 06:59 Intake Total 6180 5006 480 Balance 6180 5006 480 Weight 81.2 kg 83.5 kg General appearance: PRESENT: no acute distress, well-developed, well-nourished Head exam: PRESENT: atraumatic, normocephalic Eye exam: PRESENT: conjunctiva pink, EOMI, PERRLA. ABSENT: scleral icterus Ear exam: PRESENT: normal external ear exam Mouth exam: PRESENT: moist, tongue midline Neck exam: ABSENT: carotid bruit, JVD, lymphadenopathy, thyromegaly Respiratory exam: PRESENT: clear to auscultation donovan. ABSENT: rales, rhonchi, wheezes Cardiovascular exam: PRESENT: RRR. ABSENT: diastolic murmur, rubs, systolic murmur Pulses: PRESENT: normal dorsalis pedis pul Vascular exam: PRESENT: normal capillary refill GI/Abdominal exam: PRESENT: normal bowel sounds, soft. ABSENT: distended, guarding, mass, organolmegaly, rebound, tenderness Rectal exam: PRESENT: deferred Extremities exam: PRESENT: full ROM. ABSENT: calf tenderness, clubbing, pedal edema Neurological exam: PRESENT: alert, awake, oriented to person, oriented to place, oriented to time, oriented to situation, CN II-XII grossly intact. ABSENT: motor sensory deficit Psychiatric exam: PRESENT: appropriate affect, normal mood. ABSENT: homicidal ideation, suicidal ideation Skin exam: PRESENT: dry, intact, warm. ABSENT: cyanosis, rash Results Laboratory Results: 08/27/19 03:58 08/27/19 03:58 08/26/19 08/27/19 08/27/19 18:15 03:58 03:58 WBC 7.9 RBC 3.44 L Hgb 7.9 L Hct 24.0 L MCV 70 L MCH 23.0 L MCHC 32.9 RDW 18.4 H Plt Count 261 Sodium 139.6 Potassium 3.9 Chloride 110 H Carbon Dioxide 25 Anion Gap 5 BUN 12 Creatinine 0.73 Est GFR ( Amer) > 60 Glucose 87 Calcium 8.4 Stool Occult Blood NEGATIVE 08/25/19 16:09 Clean Catch Midstream Urine Culture - Final Escherichia Coli 08/25/19 13:43 Creatine Kinase 34 Impressions: Chest X-Ray 08/25/19 13:32 IMPRESSION: NO ACUTE RADIOGRAPHIC FINDING IN THE CHEST. Abdomen/Pelvis CT 08/25/19 18:01 IMPRESSION: 1. Possible right pyelonephritis. Correlate clinically. No ureteral stone or obstruction. 2. Splenomegaly. Assessment and Plan - Diagnosis (1) Sepsis Is this a current diagnosis for this admission?: Yes Plan: Secondary to pyelonephritis. She is yielding gram-negative bacteria in her urine. Patient is on empiric meropenem. She is clinically improved and will continue pending full culture results Patient was hypotensive, tachycardic and febrile with a leukocytosis and an acute pyelonephritis. (2) Acute pyelonephritis without medullary necrosis Is this a current diagnosis for this admission?: Yes Plan: Meropenem Day 3 Change to Ceftriaxone for E.coli (3) Tobacco use disorder, continuous Is this a current diagnosis for this admission?: Yes (4) Iron deficiency anemia Is this a current diagnosis for this admission?: Yes Plan: Likely secondary to chronic blood loss. Patient's iron stores 10. She will need outpatient follow-up due to severe iron deficiency. Was given IV iron and will start oral iron. occult blood in the stool is negative (5) Hypokalemia Is this a current diagnosis for this admission?: Yes Plan: Replaced
[2019-08-27] MEDS ORDERED: CEFTRIAXONE 2 GM/D5W RTU 2 GM/50 ML RTUPB IV SCH (18:00)
[2019-08-27] MEDS: TEMAZEPAM 15 MG CAPSULE PO PRN (21:20)
[2019-08-28] MEDS: ACETAMINOPHEN 325 MG TABLET PO PRN (04:58)
[2019-08-28] MEDS: HEPARIN SOD (PORCINE) 5,000 UNIT/ML 1 ML VIAL SUBCUT SCH ×2 (05:00→14:13)
[2019-08-28 06:15] LABS: HEMATOCRIT 24.1 % (36.0-47.0); MEAN CORPUSCULAR HEMOGLOBIN 22.6 pg (27.0-33.4); MEAN CORPUSCULAR HGB CONC 32.5 g/dL (32.0-36.0); MEAN CORPUSCULAR VOLUME 70 fl (80-97); PLATELET COUNT 341 10^3/uL (150-450); RED BLOOD COUNT 3.47 10^6/uL (3.72-5.28); RED CELL DISTRIBUTION WIDTH 18.4 % (11.5-14.0); WHITE BLOOD COUNT 8.3 10^3/uL (4.0-10.5)
[2019-08-28 06:23] LABS: HEMOGLOBIN 7.8 g/dL (12.0-15.5)
[2019-08-28] MEDS: DOCUSATE SODIUM 100 MG CAPSULE PO SCH (11:09)
[2019-08-28] MEDS: FAMOTIDINE 20 MG TABLET PO SCH (11:09)
--- NOTE | 2019-08-28 11:09 | PDOC DISCHARGE SUMMARY ---
Impression - Admit/DC Date/PCP Admission Date/Primary Care Provider: 08/25/19 19:36 Discharge Date: 08/28/19 - Discharge Diagnosis (1) Sepsis Is this a current diagnosis for this admission?: Yes (2) Acute pyelonephritis without medullary necrosis Is this a current diagnosis for this admission?: Yes (3) Tobacco use disorder, continuous Is this a current diagnosis for this admission?: Yes (4) Iron deficiency anemia Is this a current diagnosis for this admission?: Yes (5) Hypokalemia Is this a current diagnosis for this admission?: Yes - Additional Information Resuscitation Status: Full Code Discharge Diet: Regular Discharge Activity: Activity As Tolerated Referrals: [facility], [facility] [Other] (Referral for evaluation of Iron deficiency anemia, Splenomegaly) Prescriptions: Ciprofloxacin HCl [Cipro 500 mg Tablet] 500 mg PO BID #6 tablet Ferrous Sulfate 325 mg PO BID #60 tablet. [place] Medications: Ciprofloxacin HCl [Cipro 500 mg Tablet] 500 mg PO BID #6 tablet 08/28/19 Ferrous Sulfate 325 mg PO BID #60 tablet. 08/28/19 History of Present Illiness History of Present Illness: LILIA GALO is a 44 year old female Who presents to the hospital with nausea vomiting abdominal pain and generalized unwell as well as fever. She was found to be hypotensive in the emergency room and subsequent tested confirm sepsis with pyelonephritis. Please see admitting history and physical for full details Hospital Course Hospital Course: Patient was initially septic. Her blood pressure was quite low but patient was likely asymptomatic. She will did respond to aggressive IV fluid resuscitation. CT scan did show right-sided pyelonephritis, there was also an incidental finding of splenomegaly. Patient was started on empiric IV antibiotics. She gradually improved while in hospital. Her sepsis resolved with improvement of her blood pressure which is still somewhat borderline at this time but patient likely at her baseline. Although she was noted to be anemic with hemoglobin at 7.8 there was no evidence of azotemia to suggest acute blood loss. She is on her monthly period And she does say that she has metrorrhagia. Occult blood was negative for evidence of occult bleeding. Iron store was 10. She was transfused with iron sucrose IV. She has been started on oral iron however it is imperative that patient is evaluated for these moderately severe anemia as well as incidental splenomegaly that was found on CT scan. Physical Exam Vital Signs: Temp Pulse Resp BP Pulse Ox 98.4 F 96 16 102/66 98 08/28/19 08:00 08/28/19 08:00 08/28/19 08:00 08/28/19 08:00 08/28/19 08:00 Intake & Output 08/27/19 08/28/19 08/29/19 06:59 06:59 06:59 Intake Total 5006 2392 Balance 5006 2392 Weight 83.5 kg 95.8 kg General appearance: PRESENT: no acute distress, morbidly obese, well-developed, well-nourished Head exam: PRESENT: atraumatic, normocephalic Eye exam: PRESENT: EOMI, PERRLA. ABSENT: scleral icterus Ear exam: PRESENT: normal external ear exam Mouth exam: PRESENT: moist, tongue midline Neck exam: ABSENT: carotid bruit, JVD, lymphadenopathy, thyromegaly Respiratory exam: PRESENT: clear to auscultation donovan. ABSENT: rales, rhonchi, wheezes Cardiovascular exam: PRESENT: RRR. ABSENT: diastolic murmur, rubs, systolic murmur Pulses: PRESENT: normal dorsalis pedis pul GI/Abdominal exam: PRESENT: normal bowel sounds, soft. ABSENT: distended, guarding, mass, organolmegaly, rebound, tenderness Rectal exam: PRESENT: deferred Extremities exam: PRESENT: full ROM. ABSENT: calf tenderness, clubbing, pedal edema Neurological exam: PRESENT: alert, awake, oriented to person, oriented to place, oriented to time, oriented to situation, CN II-XII grossly intact. ABSENT: motor sensory deficit Psychiatric exam: PRESENT: appropriate affect, normal mood. ABSENT: homicidal ideation, suicidal ideation Skin exam: PRESENT: dry, intact, warm. ABSENT: cyanosis, rash Results Laboratory Results: WBC 8.3 10^3/uL (4.0-10.5) 08/28/19 05:28 RBC 3.47 10^6/uL (3.72-5.28) L 08/28/19 05:28 Hgb 7.8 g/dL (12.0-15.5) L 08/28/19 05:28 Hct 24.1 % (36.0-47.0) L 08/28/19 05:28 MCV 70 fl (80-97) L 08/28/19 05:28 MCH 22.6 pg (27.0-33.4) L 08/28/19 05:28 MCHC 32.5 g/dL (32.0-36.0) 08/28/19 05:28 RDW 18.4 % (11.5-14.0) H 08/28/19 05:28 Plt Count 341 10^3/uL (150-450) 08/28/19 05:28 Lymph % (Auto) Not Reportable 08/25/19 13:43 Mcmullen % (Auto) Not Reportable 08/25/19 13:43 Eos % (Auto) Not Reportable 08/25/19 13:43 Baso % (Auto) Not Reportable 08/25/19 13:43 Reticulocyte # 0.035 10^6/uL (0.028-0.122) 08/25/19 13:43 Absolute Neuts (auto) Not Reportable 08/25/19 13:43 Absolute Lymphs (auto) Not Reportable 08/25/19 13:43 Absolute Monos (auto) Not Reportable 08/25/19 13:43 Absolute Eos (auto) Not Reportable 08/25/19 13:43 Absolute Basos (auto) Not Reportable 08/25/19 13:43 Total Counted 100 08/25/19 13:43 Seg Neutrophils % Not Reportable 08/25/19 13:43 Seg Neuts % (Manual) 84 % (42-78) H 08/25/19 13:43 Lymphocytes % (Manual) 4 % (13-45) L 08/25/19 13:43 Monocytes % (Manual) 11 % (3-13) 08/25/19 13:43 Eosinophils % (Manual) 1 % (0-6) 08/25/19 13:43 Basophils % (Manual) 0 % (0-2) 08/25/19 13:43 Abs Neuts (Manual) 15.0 10^3/uL (1.7-8.2) H 08/25/19 13:43 Abs Lymphs (Manual) 0.7 10^3/uL (0.5-4.7) 08/25/19 13:43 Abs Monocytes (Manual) 2.0 10^3/uL (0.1-1.4) H 08/25/19 13:43 Absolute Eos (Manual) 0.2 10^3/uL (0.0-0.6) 08/25/19 13:43 Abs Basophils (Manual) 0.0 10^3/uL (0.0-0.2) 08/25/19 13:43 Large Platelets PRESENT 08/25/19 13:43 Platelet Comment ADEQUATE 08/25/19 13:43 Anisocytosis 1+ 08/25/19 13:43 Microcytosis 2+ 08/25/19 13:43 Ovalocytes 1+ 08/25/19 13:43 Retic Count (auto) 0.82 % (0.66-2.85) 08/25/19 13:43 PT 15.0 SEC (11.4-15.4) 08/25/19 13:43 INR 1.17 08/25/19 13:43 VBG pH 7.45 (7.30-7.42) H 08/25/19 15:23 VBG pCO2 32.3 mmHg (35-63) L 08/25/19 15:23 VBG HCO3 21.8 mmol/L (20-32) 08/25/19 15:23 VBG Base Excess -1.8 mmol/L 08/25/19 15:23 Sodium 139.6 mmol/L (137-145) 08/27/19 03:58 Potassium 3.9 mmol/L (3.6-5.0) 08/27/19 03:58 Chloride 110 mmol/L (98-107) H 08/27/19 03:58 Carbon Dioxide 25 mmol/L (22-30) 08/27/19 03:58 Anion Gap 5 (5-19) 08/27/19 03:58 BUN 12 mg/dL (7-20) 08/27/19 03:58 Creatinine 0.73 mg/dL (0.52-1.25) 08/27/19 03:58 Est GFR ( Amer) > 60 (>60) 08/27/19 03:58 Est GFR (MDRD) Non-Af > 60 (>60) 08/27/19 03:58 Glucose 87 mg/dL (75-110) 08/27/19 03:58 Lactic Acid 0.7 mmol/L (0.7-2.1) 08/26/19 04:46 Calcium 8.4 mg/dL (8.4-10.2) 08/27/19 03:58 Magnesium 1.7 mg/dL (1.6-2.3) 08/26/19 04:46 Iron 10.2 ug/dL (37-170) L 08/25/19 13:43 TIBC 310 ug/dL (250-450) 08/25/19 13:43 % Saturation 3 % 08/25/19 13:43 Ferritin 65.30 ng/mL (6.2-137.0) 08/25/19 13:43 Total Bilirubin 0.7 mg/dL (0.2-1.3) 08/25/19 13:43 Direct Bilirubin 0.1 mg/dL (0.0-0.4) 08/25/19 13:43 Neonat Total Bilirubin Not Reportable 08/25/19 13:43 Neonat Direct Bilirubin Not Reportable 08/25/19 13:43 Neonat Indirect Bili Not Reportable 08/25/19 13:43 AST 17 U/L (14-36) 08/25/19 13:43 ALT 11 U/L (<35) 08/25/19 13:43 Alkaline Phosphatase 72 U/L (38-126) 08/25/19 13:43 Creatine Kinase 34 U/L (30-135) 08/25/19 13:43 Total Protein 6.1 g/dL (6.3-8.2) L 08/25/19 13:43 Albumin 3.2 g/dL (3.5-5.0) L 08/25/19 13:43 Vitamin B12 207.0 pg/mL (239-931) L 08/25/19 13:43 Folate 4.67 ng/mL (>2.76) 08/25/19 13:43 TSH 1.60 uIU/mL (0.47-4.68) 08/25/19 13:43 Urine Color YELLOW 08/25/19 16:09 Urine Appearance CLOUDY 08/25/19 16:09 Urine pH 5.0 (5.0-9.0) 08/25/19 16:09 Ur Specific Stokes 1.008 08/25/19 16:09 Urine Protein 100 mg/dL (NEGATIVE) H 08/25/19 16:09 Urine Glucose (UA) NEGATIVE mg/dL (NEGATIVE) 08/25/19 16:09 Urine Ketones NEGATIVE mg/dL (NEGATIVE) 08/25/19 16:09 Urine Blood LARGE (NEGATIVE) H 08/25/19 16:09 Urine Nitrite (Reflex) NEGATIVE (NEGATIVE) 08/25/19 16:09 Urine Bilirubin NEGATIVE (NEGATIVE) 08/25/19 16:09 Urine Urobilinogen NEGATIVE mg/dL (<2.0) 08/25/19 16:09 Leukocyte Esterase Rfl LARGE (NEGATIVE) H 08/25/19 16:09 Urine RBC (Auto) 24 /HPF 08/25/19 16:09 Urine Bacteria (Auto) 3+ /HPF 08/25/19 16:09 Urine WBC (Reflex) 172 /HPF 08/25/19 16:09 Urine WBC Clumps MANY /HPF 08/25/19 16:09 Squamous Epi Cells Auto 11 /HPF 08/25/19 16:09 U Non-Squamous Epis Auto 1 /HPF 08/25/19 16:09 Amorphous Sediment Auto TRACE /HPF 08/25/19 16:09 Urine Mucus (Auto) RARE /LPF 08/25/19 16:09 Urine Ascorbic Acid NEGATIVE (NEGATIVE) 08/25/19 16:09 Urine HCG, Qual NEGATIVE (NEGATIVE) 08/25/19 16:09 Stool Occult Blood NEGATIVE (NEGATIVE) 08/26/19 18:15 Influenza A (Rapid) Cancelled 08/25/19 14:57 Influenza B (Rapid) Cancelled 08/25/19 14:57 Group A Strep Rapid NEGATIVE (NEGATIVE) 08/25/19 14:57 Impressions: Chest X-Ray 08/25/19 13:32 IMPRESSION: NO ACUTE RADIOGRAPHIC FINDING IN THE CHEST. Abdomen/Pelvis CT 08/25/19 18:01 IMPRESSION: 1. Possible right pyelonephritis. Correlate clinically. No ureteral stone or obstruction. 2. Splenomegaly. Plan Health Concerns: Iron deficiency anemia, negative stool guaiac. This needs outpatient evaluation including [employer] evaluation as to etiology. Splenomegaly, will suggest outpatient evaluation also Time Spent: Greater than 30 Minutes Stroke Is this a Stroke Patient?: No Acute Heart Failure - Is this a Heart Failure Patient?: No
[2019-08-28 13:48] VITALS: BP 129/71
[2019-08-28] MEDS ORDERED: CEFTRIAXONE 2 GM/D5W RTU 2 GM/50 ML RTUPB IV ONE (14:00)
== END 2019-08-28 15:18 | disposition home or self-care (01) | DRG 872 ==
LOC: ER 12:53 → EH 19:36 → 5 21:41
PROVIDERS: ADMIT Emergency Medicine; ATTEND Emergency Medicine
PROC: 3E0234Z Introduction of Serum, Toxoid and Vaccine into Muscle, Percutaneous Approach (ICD-10-PCS; principal; 2019-08-28)
DX: A41.9 Sepsis, unspecified organism (principal); N10 Acute pyelonephritis; N39.0 Urinary tract infection, site not specified; F17.210 Nicotine dependence, cigarettes, uncomplicated; D50.9 Iron deficiency anemia, unspecified; E87.6 Hypokalemia; B96.89 Other specified bacterial agents as the cause of diseases classified elsewhere; R16.1 Splenomegaly, not elsewhere classified; E66.9 Obesity, unspecified; Z82.49 Family history of ischemic heart disease and other diseases of the circulatory system; Z83.3 Family history of diabetes mellitus; Z23 Encounter for immunization
CPT/HCPCS: 36415; 71046; 74177; 80048; 80053; 81001; 81025; 82272; 82550; 82607; 82728; 82746; 82803; 83540; 83550; 83605; 83735; 84443; 85025; 85027; 85045; 85610; 87040; 87070; 87086; 87088; 87186; 87804; 87880; 90686; 93005; 93010; 96361; 96365; 99284; J0696; J1644; J1756; J2185; J2550; J3490; J7030; J7040; J7120; S0119

== ENCOUNTER → 2019-09-06 | Outpatient (CLI) | payer OTHER ==
[2019-09-06 12:50] LABS: ABSOLUTE EOSINOPHILS # (AUTO) 0.1 10^3/uL (0.0-0.6); ABSOLUTE LYMPHOCYTES (AUTO) 2.1 10^3/uL (0.5-4.7); ABSOLUTE MONOCYTES (AUTO) 0.3 10^3/uL (0.1-1.4); ABSOLUTE NEUT (AUTO) 5.7 10^3/uL (1.7-8.2); BASOPHILS % (AUTO) 0.2 % (0-2); EOSINOPHILS % (AUTO) 1.5 % (0-6); HEMATOCRIT 36.5 % (36.0-47.0); HEMOGLOBIN 11.8 g/dL (12.0-15.5); LYMPHOCYTES % (AUTO) 25.7 % (13-45); MEAN CORPUSCULAR HEMOGLOBIN 23.7 pg (27.0-33.4); MEAN CORPUSCULAR HGB CONC 32.4 g/dL (32.0-36.0); MEAN CORPUSCULAR VOLUME 73 fl (80-97); MONOCYTES % (AUTO) 4.2 % (3-13); PLATELET COUNT 503 10^3/uL (150-450); RED BLOOD COUNT 4.98 10^6/uL (3.72-5.28); RED CELL DISTRIBUTION WIDTH 20.8 % (11.5-14.0); SEGMENTED NEUTROPHILS % (AUTO) 68.4 % (42-78); TOTAL CELLS COUNTED % (AUTO) 100 %; WHITE BLOOD COUNT 8.3 10^3/uL (4.0-10.5)
[2019-09-06 13:15] LABS: ALBUMIN 3.6 g/dL (3.5-5.0); ALKALINE PHOSPHATASE 59 U/L (38-126); ANION GAP 9 (5-19); ASPARTATE AMINO TRANSFERASE 16 U/L (14-36); BILIRUBIN,TOTAL 0.3 mg/dL (0.2-1.3); BLOOD UREA NITROGEN 13 mg/dL (7-20); CALCIUM 9.3 mg/dL (8.4-10.2); CARBON DIOXIDE 23 mmol/L (22-30); CHLORIDE 105 mmol/L (98-107); GLUCOSE 91 mg/dL (75-110); IRON(TIBC) 242.1 ug/dL (37-170); POTASSIUM 4.7 mmol/L (3.6-5.0); TOTAL PROTEIN 6.9 g/dL (6.3-8.2)
== END ==
LOC: CCC 11:38
DX: A41.9 Sepsis, unspecified organism (principal); D63.8 Anemia in other chronic diseases classified elsewhere
CPT/HCPCS: 36415; 80053; 82728; 83540; 83550; 84466; 85025